=== PATIENT | male | born 1955 | race Caucasian/White ===

== ENCOUNTER 2018-07-14 13:56 | Emergency (ER) | payer OTHER ==
[2018-07-14 14:06] VITALS: BP 182/99; PULSE 69; RESP 16; TEMP 98.2
[2018-07-14] MEDS ORDERED: DIPH,PERTUS(ACELL)TETVAC-LF 0.5 ML VIAL IM ONE (14:15)
[2018-07-14] MEDS ORDERED: LIDOCAINE 1% INJ 10MG/ML (20 ML MDV) SQ ONE (14:15)
--- NOTE | 2018-07-14 14:20 | ED ---
General Adult HPI - General Chief complaint: Wound/Laceration Stated complaint: Finger injury Time Seen by Provider: 07/14/18 14:07 Source: patient, RN notes reviewed Mode of arrival: ambulatory Limitations: no limitations - History of Present Illness Initial comments: 62-year-old pleasant male presents to the emergency department for a chief complaint of laceration of the left second digit x 1 hour. 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 Patient states it was caught between the pain and the ladder. Tetanus is not up-to-date. Patient denies any pain elsewhere in the left hand. Denies any other injuries. Patient did go to [facility] but was ultimately sent to the emergency department for further evaluation. Patient has no other complaints at this time including shortness of breath, chest pain, abdominal pain, nausea or vomiting, headache, or visual changes. - Related Data Previous Rx's Medication Instructions Recorded Cephalexin [Keflex] 500 mg PO Q6HR 3 Days #12 cap 07/14/18 Allergies Allergy/AdvReac Type Severity Reaction Status Date / Time No Known Allergies Allergy Verified 07/14/18 14:06 Review of Systems ROS Statement: Those systems with pertinent positive or pertinent negative responses have been documented in the HPI. ROS Other: All systems not noted in ROS Statement are negative. Past Medical History Past Medical History: No Reported History History of Any Multi-Drug Resistant Organisms: None Reported Past Surgical History: No Surgical Hx Reported Past Anesthesia/Blood Transfusion Reactions: No Reported Reaction Past Psychological History: No Psychological Hx Reported Smoking Status: Never smoker General Exam Limitations: no limitations General appearance: alert, in no apparent distress Head exam: Present: atraumatic, normocephalic, normal inspection Eye exam: Present: normal appearance, PERRL, EOMI. Absent: scleral icterus, conjunctival injection, periorbital swelling ENT exam: Present: normal exam, mucous membranes moist Neck exam: Present: normal inspection, full ROM. Absent: tenderness, meningismus, lymphadenopathy Respiratory exam: Present: normal lung sounds bilaterally. Absent: respiratory distress, wheezes, rales, rhonchi, stridor Cardiovascular Exam: Present: regular rate, normal rhythm, normal heart sounds. Absent: systolic murmur, diastolic murmur, rubs, gallop, clicks Extremities exam: Present: full ROM (Full range of motion of the left second digit including the MCP, PIP, and DIP joints), tenderness (Generalized tenderness to the left second digit, no tenderness in the rest of the left hand), normal capillary refill (Capillary refill less than 2 seconds, radial pulse 2+ and left upper extremity.), other (There is a 5 cm laceration through the dorsal aspect of the left second digit including the PIP joints, no foreign bodies noted. tendon sheath is visible. no obvious damage to deep structures. ) Neurological exam: Present: alert, oriented X3, CN II-XII intact Psychiatric exam: Present: normal affect, normal mood Course Vital Signs 07/14/18 14:05 Temperature 98.2 F Pulse Rate 69 Respiratory 16 Rate Blood Pressure 182/99 O2 Sat by Pulse 98 Oximetry Procedures - Laceration Laceration #1 Consent Obtained: verbal consent Indication: laceration Site: other (Finger) Size (cm): 5 Description: stellate Depth: simple, single layer, involves muscle layer Anesthetic Used: lidocaine 1% Anesthesia Technique: nerve block Amount (mls): 6 Pre-repair: wound explored, irrigated extensively Type of Sutures: other (ethilon) Size of Sutures: 4-0 Number of Sutures: 12 Technique: simple, interrupted Patient Tolerated Procedure: well, no complications Medical Decision Making - Medical Decision Making 62-year-old male presents to the emergency department for a chief complaint of laceration to the left second digit. This occurred just prior to arrival. Patient states a beam fell on his left second digit. He does have full range of motion and capillary refill is intact. There is a 5 cm laceration extending to the dorsal aspect of the PIP joint. X-ray does show acute oblique intra- articular fracture through the ulnar aspect at the base of second distal phalanx . The wound was cleaned thoroughly with 2 L of sterile water. Laceration was approximated with 12 sutures. Wound was dressed and patient was pleased any splint of the left second digit. Patient was given tetanus and Ancef. Discussed infection precautions including those involving tendon and bone. Discussed following up with orthopedics in one to 2 days. Discussed returning here for any worsening symptoms. Disposition Clinical Impression: Laceration, Fracture of distal phalanx of finger Disposition: HOME SELF-CARE Condition: Good Instructions (If sedation given, give patient instructions): Care For Your Stitches (ED), Laceration (ED), Finger Fracture (ED) Additional Instructions: Please keep the area clean and monitor for signs of infection such as spreading or streaking redness. Keep splint on finger. Follow up with orthopedics in one to 2 days. Please return in 10 days to have sutures removed. Return here if you have any other worsening symptoms. Prescriptions: Cephalexin [Keflex] 500 mg PO Q6HR 3 Days #12 cap Is patient prescribed a controlled substance at d/c from ED?: No Referrals: Xiang Edward MD [Primary Care Provider] - 1-2 days Cole Zambrano DO [Medical Doctor] - 1-2 days Time of Disposition: 15:31
[2018-07-14] MEDS ORDERED: ceFAZolin 1,000 MG VIAL IM STA (14:36)
--- NOTE | 2018-07-14 14:50 | XR ---
EXAMINATION TYPE: XR finger LT DATE OF EXAM: 07/14/2018 COMPARISON: NONE HISTORY: Crushing laceration injury today with pain. TECHNIQUE: 3 views left second finger are obtained. FINDINGS: There is acute oblique intra-articular fracture through the ulnar aspect at base of second distal phalanx likely along the volar surface on lateral image. There is moderate narrowing at DIP neto int. Overlying soft tissue is unremarkable without radiodense foreign body or lucency to suggest soft tissue laceration. IMPRESSION: As above. (Initial encounter closed type post traumatic fracture)
== END 2018-07-14 15:42 | disposition home or self-care (01) ==
LOC: EC 13:56
DX: S62.631A Displaced fracture of distal phalanx of left index finger, initial encounter for closed fracture (principal); S61.211A Laceration without foreign body of left index finger without damage to nail, initial encounter; Z23 Encounter for immunization; W20.8XXA Other cause of strike by thrown, projected or falling object, initial encounter; Y92.009 Unspecified place in unspecified non-institutional (private) residence as the place of occurrence of the external cause; Y93.89 Activity, other specified
CPT/HCPCS: 73140; 90715; 99283; 12002; 90471; 96372; J0690; J2001